=== PATIENT | male | born 1960 | race Two or more races ===

== ENCOUNTER → 2020-12-06 | Day surgery (SDC) | payer OTHER ==
[2020-12-05 08:54] VITALS: BMI 27.4
[~2020-12-06] MED LIST: ALPRAZolam 0.25 MG TAB PO PRN; ALPRAZolam 0.5 MG TAB PO PRN; ASPIRIN 325 MG TAB PO STA; ATORVASTATIN 80 MG TAB PO STA; HEPARIN SODIUM 1,000 UN/ML (10ML VL) ONE; HEPARIN SODIUM,PORCINE 10,000 UNIT in SODIUM CHLORIDE 0.9% 1,000 ML IRRIGATION PRN; HEPARIN SODIUM,PORCINE 2,500 UNIT in SODIUM CHLORIDE 0.9% 250 ML IRRIGATION PRN; IOPAMIDOL-370 100ML BTL INJ ONE; LIDOCAINE 1% INJ 10MG/ML (20 ML MDV) ONE; LIDOCAINE 1% INJ 10MG/ML (20 ML MDV) SQ ONE; NITROGLYCERIN SL TABS 0.4 MG TAB SUBLINGUAL PRN; SODIUM CHLORIDE 0.9% 1,000 ML in EMPTY BAG 1 BAG IV ONE; VERAPAMIL 2.5 MG/ML 2 ML AMP ONE
[2020-12-06 06:41] VITALS: RESP 16; TEMP 97.6
[2020-12-06] MEDS: MIDAZOLAM 2 MG/2 ML VIAL IV ONE ×2 (07:50→07:54)
[2020-12-06] MEDS: VERAPAMIL SYRINGE (5 MG/10 ML) IV ONE ×2 (08:00→08:17)
--- NOTE | 2020-12-06 09:11 | CC ---
CARDIAC CATHETERIZATION REPORT DATE OF SERVICE: 12/06/2020 PROCEDURE: Left heart catheterization and coronary angiography. PERFORMED BY: Dr. Ifeanyi Santos. ANESTHESIA: Moderate conscious sedation time was 26 minutes. Patient was administered Versed. Oxygen saturation, hemodynamics and EKG were monitored closely. CLINICAL INFORMATION: Mr. Perez Flowers is a 60-year-old gentleman with a known history of CAD, prior PCI of LAD that was performed in 2008. He also has hypertension and hyperlipidemia. He has been having episodes of chest tightness, pressure with moderate effort and a stress test revealed inferolateral reversible defect. Therefore he was advised cardiac catheterization after adequate medications. Risks, benefits, options, rationale were explained to the patient. He understood all details and wished to proceed with the procedure. PROCEDURE NOTE: Under local anesthesia and strict aseptic precautions, a 6-Welsh introducer was placed in the right radial artery. Using a JL3.5 and JR4 catheters I performed coronary angiography and the same right catheter was used to check LV pressure but LV gram was not performed. The sheath was taken out and a TR band applied as per protocol with saturation of the fingers of the right hand of 95%. CARDIAC CATHETERIZATION FINDINGS: Left ventricular end-diastolic pressure was about 15 mmHg without any gradient across aortic valve. CORONARY ANGIOGRAPHY FINDINGS: RIGHT CORONARY ARTERY: This is a large dominant vessel that is heavily calcified in the proximal and midportion. The proximal portion has a long area of about 55% narrowing extremely tortuous and in the midportion there is a very eccentric 80% stenosis at the origin of an acute marginal branch after which the caliber improves and distally bifurcates into a larger PDA, a smaller PLV. The RCA therefore is a dominant vessel, heavily calcified proximal 55-60, mid 75-80% and heavily calcified segment and this appears to be the culprit lesion. LEFT MAIN CORONARY ARTERY: Long patent disease-free vessel that bifurcates into LAD and circumflex. LEFT ANTERIOR DESCENDING CORONARY ARTERY: Good caliber vessel extends along the anterior wall. At the site of previous stenting the vessel is widely patent. Beyond that, it gives off a diagonal branch that runs all the way to the apex, has minor irregularities. There is about a 35% to 40% lesion in the LAD, but the stented segment is widely patent with brisk flow. LEFT POSTERIOR CIRCUMFLEX CORONARY ARTERY: Technically this is a nondominant vessel, gives off a single obtuse marginal that runs laterally almost in the ramus distribution, has about a 40% proximal lesion. A circumflex that continues in the AV groove and distal posterolateral branch have minor irregularities. No significant disease in the circumflex system. FINAL IMPRESSION: This patient has a right dominant system with slightly elevated filling pressures. No gradient. There is a 55% stenosis in the proximal RCA, 75-80% in mid RCA in a heavily calcified segment. Previously stented mid LAD is widely patent with good flow and circumflex has noncritical disease and a nondominant vessel. RECOMMENDATIONS: I am recommending intervention of the RCA, but I will perform this in an elective setting. The patient will need an orbital atherectomy procedure, which I will perform from right femoral approach because I would need much better guide support. RCA comes off at a superior angle and has somewhat of a difficult seating of the guide catheter. I will therefore perform elective PCI with orbital atherectomy of the RCA and this will be performed in the next couple of weeks. I discussed this with the patient and his friend. Rationale, risks, benefits and options explained. The associated risks, which are higher than usual, were also discussed. Patient understands all details and I will set this up in the next 2 weeks, but I will see him in the office tomorrow afternoon. MMODL / IJN: [id number] /
[2020-12-06 19:43] VITALS: BP 138/90; PULSE 64
== END ==
LOC: CATHCVL 06:05
PROVIDERS: ATTEND Internal Medicine Interventional Cardiology
DX: I25.110 Atherosclerotic heart disease of native coronary artery with unstable angina pectoris (principal); I25.84 Coronary atherosclerosis due to calcified coronary lesion; I77.1 Stricture of artery; I10 Essential (primary) hypertension; R94.39 Abnormal result of other cardiovascular function study; E78.00 Pure hypercholesterolemia, unspecified; E78.5 Hyperlipidemia, unspecified; Z82.49 Family history of ischemic heart disease and other diseases of the circulatory system; Z98.61 Coronary angioplasty status
CPT/HCPCS: 93458; C1894; J2250; J2001; J1644; Q9967

== ENCOUNTER 2020-12-12 06:08 | Day surgery (SDC) | payer OTHER ==
[2020-12-09 08:18] VITALS: BMI 26.6
[~2020-12-12 06:08] MED LIST changes: -HEPARIN SODIUM 1,000 UN/ML (10ML VL) ONE; -HEPARIN SODIUM,PORCINE 10,000 UNIT in SODIUM CHLORIDE 0.9% 1,000 ML IRRIGATION PRN; -HEPARIN SODIUM,PORCINE 2,500 UNIT in SODIUM CHLORIDE 0.9% 250 ML IRRIGATION PRN; -IOPAMIDOL-370 100ML BTL INJ ONE; -LIDOCAINE 1% INJ 10MG/ML (20 ML MDV) ONE; -LIDOCAINE 1% INJ 10MG/ML (20 ML MDV) SQ ONE; -VERAPAMIL 2.5 MG/ML 2 ML AMP ONE
[2020-12-12] MEDS ORDERED: SODIUM CHLORIDE 0.9% 1,000 ML IV ONE (06:21)
[2020-12-12 06:38] LABS: Basophils # (A) 0.1 k/uL (0-0.2); Basophils % (A) 1 %; Eosinophils # (A) 0.4 k/uL (0-0.7); Eosinophils % (A) 4 %; HCT 42.5 % (39.0-53.0); Lymphocytes # (A) 1.8 k/uL (1.0-4.8); Lymphocytes % (A) 21 %; MCH 30.7 pg (25.0-35.0); MCHC 35.2 g/dL (31.0-37.0); MCV 87.2 fL (80.0-100.0); Mean Platelet Volume 6.9; Monocytes # (A) 0.7 k/uL (0-1.0); Monocytes % (A) 8 %; Neutrophils # (A) 5.5 k/uL (1.3-7.7); Neutrophils % (A) 64 %; Platelet Count 179 k/uL (150-450); RBC 4.87 m/uL (4.30-5.90); RDW 12.6 % (11.5-15.5); WBC 8.6 k/uL (3.8-10.6)
[2020-12-12 06:46] LABS: African American GFR (CKD) >90 (>60 ml/min/1.73 sqM); Anion Gap 5 mmol/L; Blood Urea Nitrogen 16 mg/dL (9-20); Calcium 9.2 mg/dL (8.4-10.2); Carbon Dioxide 29 mmol/L (22-30); Chloride 107 mmol/L (98-107); Glucose 106 mg/dL (74-99); Non-African American GFR(CKD) >90 (>60 ml/min/1.73 sqM); Potassium 3.7 mmol/L (3.5-5.1); Sodium 141 mmol/L (137-145)
[2020-12-12] MEDS ORDERED: LIDOCAINE 1% INJ 10MG/ML (20 ML MDV) ONE (07:14)
[2020-12-12] MEDS: MIDAZOLAM 2 MG/2 ML VIAL IVP ONE ×2 (07:20→07:45)
[2020-12-12] MEDS ORDERED: LIDOCAINE 1% INJ 10MG/ML (20 ML MDV) SQ ONE (07:22)
[2020-12-12] MEDS ORDERED: fentaNYL (PF) 50 MCG/ML 2 ML AMP ONE (07:25)
[2020-12-12] MEDS: fentaNYL (PF) 50 MCG/ML 2 ML AMP IV ONE ×2 (07:26→07:29)
[2020-12-12] MEDS ORDERED: HEPARIN SODIUM 1,000 UN/ML (10ML VL) ONE (07:36)
[2020-12-12] MEDS: HEPARIN SODIUM 1,000 UN/ML (10ML VL) IV ONE ×2 (07:40→08:25)
[2020-12-12] MEDS ORDERED: IOPAMIDOL-370 100ML BTL INJ ONE ×2 (08:18→08:35)
[2020-12-12] MEDS ORDERED: CLOPIDOGREL 75 MG TAB ONE (08:25)
[2020-12-12] MEDS ORDERED: CLOPIDOGREL 75 MG TAB PO ONE (08:26)
[2020-12-12] MEDS ORDERED: NITROGLYCERIN 1000MCG/10ML SYRINGE INTRACORON ONE (08:27)
[2020-12-12] MEDS ORDERED: HYDROmorphone 0.5 MG/0.5 ML SYRINGE IVP ONE (08:35)
[2020-12-12] MEDS: SODIUM CHLORIDE 0.9% 1,000 ML IV SCH ×2 (09:00→22:20)
[2020-12-12] MEDS: LORATADINE 10 MG TAB PO SCH (11:52)
[2020-12-12] MEDS: CLOPIDOGREL 75 MG TAB PO SCH (11:52)
[2020-12-12] MEDS: EZETIMIBE 10 MG TAB PO SCH (11:52)
[2020-12-12] MEDS: METOPROLOL TARTRATE 25 MG TAB PO SCH ×2 (11:52→22:19)
[2020-12-12] MEDS: ATORVASTATIN 80 MG TAB PO SCH (13:07)
--- NOTE | 2020-12-12 14:32 | CC ---
CARDIAC CATHETERIZATION REPORT ADDENDUM: Moderate conscious sedation time was 75 minutes. Patient was administered Versed and fentanyl. Oxygen saturation, hemodynamics and EKG were monitored closely. The patient tolerated procedure well without complications. Excellent angiographic result was achieved. Details were discussed with the patient and his friend. SEBASTIEN / PAT: [id number] /
--- NOTE | 2020-12-12 14:32 | CC ---
CARDIAC CATHETERIZATION REPORT DATE OF SERVICE: date of service 12/12/2020. PROCEDURE PERFORMED: 1. Transvenous temporary pacemaker from the right femoral venous approach. 2. Orbital atherectomy, PTCA and stenting of proximal and mid dominant RCA with a drug- eluting stents. PERFORMED BY: Dr. Ifeanyi Santos. CLINICAL INFORMATION: Mr. Perez Flowers is a 60-year-old gentleman who works in the [employer] department. He is a fairly active person, has been having symptoms of exertional shortness of breath and chest pain, had a positive stress test with a moderate inferolateral reversible defect suggestive of ischemia. Recent cardiac cath revealed that his previously stented LAD was widely patent but he had a new lesion in the proximal RCA of 65% and mid RCA of 85%. Heavily calcified vessel, was advised orbital atherectomy and PTCA, brought in for the procedure electively. Patient was already on aspirin and Plavix. PROCEDURE NOTE: Under local anesthesia and strict aseptic precautions, a 6-Polish introducer was placed in the right femoral vein and another 6-Polish introducer in the right femoral artery. Using a transvenous balloon tipped pacemaker, the pacemaker was positioned in the right ventricular apex and threshold was about 0.8 mV. The pacemaker was set up at a backup rate of 40 and mA of 5. I then turned my attention to the PCI. AllRight 3.5 curve guide catheter was used to cannulate the right coronary artery. I used a Nitinol wire of 310 cm to cross the lesion in the RCA. Wire was kept in the PLV branch. I performed orbital atherectomy of the proximal and mid lesion. Multiple passes were used. For the mid lesion, I had to use a Lizz glide to advance the device. After making multiple passes in the mid and proximal lesion, the device was taken out. I then used a 3.0 caliber 15 mm NC Trek balloon and with this I pre-dilated the mid as well as the proximal lesion. I then deployed a 3.5 caliber 15 mm Xience stent in the distal lesion and a 28 mm 3.5 caliber Xience stent in the proximal lesion. Both the stents were almost close to each other in the midportion. I then post dilated the entire stented segment with a 4.0 caliber NC Trek balloon of 15 mm length. Excellent angiographic result without complication was achieved. Patient received a total of 6500 units of heparin and ACT was kept between 250 and 302. The sheath was taken out and Angio-Seal device used to secure hemostasis. The venous sheath was taken out and manual compression used. Results were discussed with the patient and his friend and he was sent to the room in a stable condition. MMKINJAL / PAT: [id number] /
[2020-12-12 19:36] VITALS: RESP 16
[2020-12-13 07:08] LABS: Basophils # (A) 0.1 k/uL (0-0.2); Basophils % (A) 1 %; Eosinophils # (A) 0.2 k/uL (0-0.7); Eosinophils % (A) 3 %; HCT 42.9 % (39.0-53.0); Lymphocytes # (A) 1.3 k/uL (1.0-4.8); Lymphocytes % (A) 17 %; MCH 29.6 pg (25.0-35.0); MCHC 32.7 g/dL (31.0-37.0); MCV 90.5 fL (80.0-100.0); Mean Platelet Volume 6.7; Monocytes # (A) 0.5 k/uL (0-1.0); Monocytes % (A) 7 %; Neutrophils # (A) 5.2 k/uL (1.3-7.7); Neutrophils % (A) 71 %; Platelet Count 168 k/uL (150-450); RBC 4.73 m/uL (4.30-5.90); RDW 12.7 % (11.5-15.5); WBC 7.4 k/uL (3.8-10.6)
[2020-12-13 07:11] LABS: African American GFR (CKD) >90 (>60 ml/min/1.73 sqM); Anion Gap 4 mmol/L; Blood Urea Nitrogen 13 mg/dL (9-20); Calcium 9.2 mg/dL (8.4-10.2); Carbon Dioxide 28 mmol/L (22-30); Chloride 108 mmol/L (98-107); Glucose 115 mg/dL (74-99); Non-African American GFR(CKD) >90 (>60 ml/min/1.73 sqM); Potassium 4.1 mmol/L (3.5-5.1); Sodium 140 mmol/L (137-145)
[2020-12-13 07:17] VITALS: BP 149/83; PULSE 56; TEMP 98
--- NOTE | 2020-12-13 07:48 | DS ---
DISCHARGE SUMMARY DATE OF ADMISSION: 12/12/2020 DATE OF DISCHARGE: 12/13/2020 DIAGNOSES: 1. Unstable angina. 2. Hypertension. 3. Hyperlipidemia. PROCEDURES PERFORMED: PTCA and stenting with orbital atherectomy of proximal and mid dominant RCA. Two drug- eluting stents were deployed. HISTORY OF PRESENT ILLNESS: Mr. Flowers she was brought in for elective PCI of RCA with orbital atherectomy. This procedure was performed uneventfully yesterday. He had a temporary pacemaker placed from right femoral approach. Orbital atherectomy and stenting of dominant RCA in the proximal and midportion was performed with 2 drug-eluting stents. The patient had excellent angiographic result. His postprocedure course was uneventful. This morning he is asymptomatic. Chart was reviewed. EKG was reviewed. He is resting comfortably without symptoms. PHYSICAL EXAMINATION: Vitals are stable. No JVD. S1, S2 heard normally. Lungs are clear. Abdomen is soft, nontender. Lower extremities reveal normal pulses, no edema. Central nervous system is normal. EKG revealed sinus mechanism with nondiagnostic inferior Q-waves. The laboratory data is still pending. RECOMMENDATION: Patient will be discharged today after reviewing the labs. He will be ambulated in the hallways. If he has no further symptoms, he will be discharged and I will see him in the office at 4:00 pm on the . Advised not to return to work until he sees me. All medications were reviewed. He is already on dual antiplatelet therapy. A single prescription for sublingual nitroglycerin was given. SEBASTIEN / CARLOTAN: [id number] /
[2020-12-13] MEDS: LORATADINE 10 MG TAB PO SCH (07:49)
[2020-12-13] MEDS: EZETIMIBE 10 MG TAB PO SCH (07:49)
[2020-12-13] MEDS: ATORVASTATIN 80 MG TAB PO SCH (07:49)
[2020-12-13] MEDS: CLOPIDOGREL 75 MG TAB PO SCH (07:49)
[2020-12-13] MEDS: METOPROLOL TARTRATE 25 MG TAB PO SCH (07:49)
[2020-12-13] MEDS ORDERED: ASPIRIN 81 MG PO SCH (09:00)
== END 2020-12-13 09:12 | disposition home or self-care (01) ==
LOC: CATHCVL 06:08 → 6NMEDSUR 11:28 → CATHCVL 12-13 09:12
PROVIDERS: ATTEND Internal Medicine Interventional Cardiology
DX: I25.10 Atherosclerotic heart disease of native coronary artery without angina pectoris (principal); I25.84 Coronary atherosclerosis due to calcified coronary lesion; Z95.5 Presence of coronary angioplasty implant and graft; I10 Essential (primary) hypertension; E78.5 Hyperlipidemia, unspecified; Z82.49 Family history of ischemic heart disease and other diseases of the circulatory system; E78.00 Pure hypercholesterolemia, unspecified; Z79.02 Long term (current) use of antithrombotics/antiplatelets; Z79.82 Long term (current) use of aspirin; Z79.899 Other long term (current) drug therapy
CPT/HCPCS: 80048 ×2; 85025 ×2; C9602; C1769 ×5; C1760; C1887; C1725 ×3; C1894; C1724; C1874; J2250; J2001; J3010; J1644; J1170; Q9967

== ENCOUNTER 2021-08-28 10:46 | Emergency (ER) | payer OTHER ==
[2021-08-28 10:51] VITALS: TEMP 97.1
[2021-08-28] MEDS ORDERED: SODIUM CHLORIDE 0.9% 500 ML 500 ML IV STA (11:02)
[2021-08-28] MEDS ORDERED: ASPIRIN 81 MG PO STA (11:02)
--- NOTE | 2021-08-28 11:12 | ED ---
Arrhythmia/Palpitations HPI - General Chief Complaint: Arrhythmia/Palpitations Stated Complaint: chest pain Time Seen by Provider: 08/28/21 10:55 Source: patient, RN notes reviewed Mode of arrival: wheelchair Limitations: no limitations - History of Present Illness Initial Comments: This a 60-year-old male presents emergency Department with chief complaint of palpitations. Patient states that he had an episode of this weekend along with an episode at work today. He states he felt like his heart was pounding he states he probably felt times in his hands. 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 He states is currently asymptomatic he does admit that he's had 3 prior cardiac stents last sent was last year. 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 Patient denies any current symptoms denies feeling short of breath, nauseated, no leg swelling or leg pain. No history of DVT or PE. - Related Data Home Medications Medication Instructions Recorded Confirmed Aspirin [Adult Low Dose Aspirin EC] 81 mg PO DAILY 12/06/20 08/28/21 Atorvastatin [Lipitor] 80 mg PO DAILY 12/06/20 08/28/21 Clopidogrel [Plavix] 75 mg PO DAILY 12/06/20 08/28/21 Metoprolol Tartrate 25 mg PO DAILY 12/06/20 08/28/21 Nitroglycerin Sl Tabs [Nitrostat] 0.4 mg SUBLINGUAL Q5M PRN 08/28/21 08/28/21 Pantoprazole [Protonix] 40 mg PO DAILY 08/28/21 08/28/21 lisinopriL 10 mg PO DAILY 08/28/21 08/28/21 Allergies Allergy/AdvReac Type Severity Reaction Status Date / Time No Known Allergies Allergy Verified 08/28/21 11:33 Review of Systems ROS Statement: Those systems with pertinent positive or pertinent negative responses have been documented in the HPI. ROS Other: All systems not noted in ROS Statement are negative. Past Medical History Past Medical History: Coronary Artery Disease (CAD), Hyperlipidemia, Hypertension Additional Past Medical History / Comment(s): States did not pass his stress test this time. States has not had any chest pain. History of Any Multi-Drug Resistant Organisms: None Reported Past Surgical History: Heart Catheterization, Heart Catheterization With Stent Additional Past Surgical History / Comment(s): colonoscopy, wisdom teeth, heart cath 12/06/20 Past Anesthesia/Blood Transfusion Reactions: No Reported Reaction Date of Last Stent Placement:: 2006 Past Psychological History: No Psychological Hx Reported Smoking Status: Never smoker Past Alcohol Use History: Occasional Past Drug Use History: None Reported - Past Family History Mother Family Medical History: No Reported History General Exam Limitations: no limitations General appearance: alert, in no apparent distress Head exam: Present: atraumatic, normocephalic, normal inspection Eye exam: Present: normal appearance, PERRL, EOMI. Absent: scleral icterus, conjunctival injection, periorbital swelling ENT exam: Present: normal exam, normal oropharynx, mucous membranes moist Neck exam: Present: normal inspection, full ROM. Absent: tenderness, meningismus, lymphadenopathy Respiratory exam: Present: normal lung sounds bilaterally. Absent: respiratory distress, wheezes, rales, rhonchi, stridor Cardiovascular Exam: Present: regular rate, normal rhythm, normal heart sounds. Absent: systolic murmur, diastolic murmur, rubs, gallop, clicks GI/Abdominal exam: Present: soft, normal bowel sounds. Absent: distended, tenderness, guarding, rebound, rigid Course Vital Signs 08/28/21 08/28/21 08/28/21 10:48 11:15 12:20 Temperature 97.1 F L Pulse Rate 73 61 63 Respiratory 18 18 18 Rate Blood Pressure 152/95 146/92 145/96 O2 Sat by Pulse 99 98 99 Oximetry Medical Decision Making - Medical Decision Making 60-year-old male presented for palpitations. Patient felt that his heart was beating her than usual. He felt in his hands. Patient workup including labs EKG and chest x-ray no acute findings. Patient remains asymptomatic. Patient discharged in stable condition return parameters were discussed. - Lab Data Result diagrams: 08/28/21 11:10 08/28/21 11:10 Lab Results 08/28/21 08/28/21 08/28/21 Range/Units 11:10 11:10 11:10 WBC 9.1 (3.8-10.6) k/uL RBC 5.21 (4.30-5.90) m/uL Hgb 15.3 (13.0-17.5) gm/dL Hct 46.7 (39.0-53.0) % MCV 89.6 (80.0-100.0) fL MCH 29.4 (25.0-35.0) pg MCHC 32.8 (31.0-37.0) g/dL RDW 13.0 (11.5-15.5) % Plt Count 164 (150-450) k/uL MPV 6.8 Neutrophils % 72 % Lymphocytes % 17 % Monocytes % 6 % Eosinophils % 2 % Basophils % 1 % Neutrophils # 6.6 (1.3-7.7) k/uL Lymphocytes # 1.5 (1.0-4.8) k/uL Monocytes # 0.6 (0-1.0) k/uL Eosinophils # 0.2 (0-0.7) k/uL Basophils # 0.1 (0-0.2) k/uL PT 10.1 (9.0-12.0) sec INR 0.9 (<1.2) APTT 25.1 (22.0-30.0) sec Sodium 138 (137-145) mmol/L Potassium 4.2 (3.5-5.1) mmol/L Chloride 106 (98-107) mmol/L Carbon Dioxide 23 (22-30) mmol/L Anion Gap 9 mmol/L BUN 15 (9-20) mg/dL Creatinine 1.03 (0.66-1.25) mg/dL Est GFR (CKD-EPI)AfAm >90 (>60 ml/min/1.73 sqM) Est GFR (CKD-EPI)NonAf 78 (>60 ml/min/1.73 sqM) Glucose 106 H (74-99) mg/dL Calcium 9.3 (8.4-10.2) mg/dL Magnesium 2.0 (1.6-2.3) mg/dL Total Bilirubin 0.8 (0.2-1.3) mg/dL AST 34 (17-59) U/L ALT 26 (4-49) U/L Alkaline Phosphatase 76 (38-126) U/L Troponin I (0.000-0.034) ng/mL Total Protein 7.7 (6.3-8.2) g/dL Albumin 4.5 (3.5-5.0) g/dL 08/28/21 Range/Units 11:10 WBC (3.8-10.6) k/uL RBC (4.30-5.90) m/uL Hgb (13.0-17.5) gm/dL Hct (39.0-53.0) % MCV (80.0-100.0) fL MCH (25.0-35.0) pg MCHC (31.0-37.0) g/dL RDW (11.5-15.5) % Plt Count (150-450) k/uL MPV Neutrophils % % Lymphocytes % % Monocytes % % Eosinophils % % Basophils % % Neutrophils # (1.3-7.7) k/uL Lymphocytes # (1.0-4.8) k/uL Monocytes # (0-1.0) k/uL Eosinophils # (0-0.7) k/uL Basophils # (0-0.2) k/uL PT (9.0-12.0) sec INR (<1.2) APTT (22.0-30.0) sec Sodium (137-145) mmol/L Potassium (3.5-5.1) mmol/L Chloride (98-107) mmol/L Carbon Dioxide (22-30) mmol/L Anion Gap mmol/L BUN (9-20) mg/dL Creatinine (0.66-1.25) mg/dL Est GFR (CKD-EPI)AfAm (>60 ml/min/1.73 sqM) Est GFR (CKD-EPI)NonAf (>60 ml/min/1.73 sqM) Glucose (74-99) mg/dL Calcium (8.4-10.2) mg/dL Magnesium (1.6-2.3) mg/dL Total Bilirubin (0.2-1.3) mg/dL AST (17-59) U/L ALT (4-49) U/L Alkaline Phosphatase (38-126) U/L Troponin I <0.012 (0.000-0.034) ng/mL Total Protein (6.3-8.2) g/dL Albumin (3.5-5.0) g/dL Disposition Clinical Impression: Palpitations Disposition: HOME SELF-CARE Condition: Stable Instructions (If sedation given, give patient instructions): Heart Palpitations (ED) Additional Instructions: Please return to the Emergency Department if symptoms worsen or any other concerns. Is patient prescribed a controlled substance at d/c from ED?: No Referrals: Quinton Flower MD [Primary Care Provider] - 1-2 days Time of Disposition: 12:24
[2021-08-28 11:31] LABS: Basophils # (A) 0.1 k/uL (0-0.2); Basophils % (A) 1 %; Eosinophils # (A) 0.2 k/uL (0-0.7); Eosinophils % (A) 2 %; HCT 46.7 % (39.0-53.0); HGB 15.3 gm/dL (13.0-17.5); Lymphocytes # (A) 1.5 k/uL (1.0-4.8); Lymphocytes % (A) 17 %; MCH 29.4 pg (25.0-35.0); MCHC 32.8 g/dL (31.0-37.0); MCV 89.6 fL (80.0-100.0); Mean Platelet Volume 6.8; Monocytes # (A) 0.6 k/uL (0-1.0); Monocytes % (A) 6 %; Neutrophils # (A) 6.6 k/uL (1.3-7.7); Neutrophils % (A) 72 %; Platelet Count 164 k/uL (150-450); RBC 5.21 m/uL (4.30-5.90); WBC 9.1 k/uL (3.8-10.6)
--- NOTE | 2021-08-28 11:32 | XR ---
EXAMINATION TYPE: XR chest 2V DATE OF EXAM: 08/28/2021 COMPARISON: None HISTORY: 60-year-old male dysrhythmia TECHNIQUE: PA and lateral views FINDINGS: Heart normal size. Aorta and pulmonary vasculature within normal limits. Mild interstitial prominence . Mild hyperinflation. No consolidation or pleural effusion. There appears to be a coronary stent pre sent. Mild biapical pleural-parenchymal scarring. IMPRESSION: Mild hyperinflation may relate to depth of inspiration or underlying emphysema. Clinically correlate. No acute process seen.
[2021-08-28 11:42] LABS: INR 0.9 (<1.2); Partial Thromboplastin Time 25.1 sec (22.0-30.0); Prothrombin Time 10.1 sec (9.0-12.0)
[2021-08-28 11:43] LABS: ALT 26 U/L (4-49); AST 34 U/L (17-59); African American GFR (CKD) >90 (>60 ml/min/1.73 sqM); Albumin 4.5 g/dL (3.5-5.0); Alkaline Phosphatase 76 U/L (38-126); Anion Gap 9 mmol/L; Blood Urea Nitrogen 15 mg/dL (9-20); Calcium 9.3 mg/dL (8.4-10.2); Carbon Dioxide 23 mmol/L (22-30); Chloride 106 mmol/L (98-107); Glucose 106 mg/dL (74-99); Non-African American GFR(CKD) 78 (>60 ml/min/1.73 sqM); Potassium 4.2 mmol/L (3.5-5.1); Sodium 138 mmol/L (137-145); Total Bilirubin 0.8 mg/dL (0.2-1.3); Total Protein 7.7 g/dL (6.3-8.2)
[2021-08-28 12:41] VITALS: BP 146/85; PULSE 61; RESP 20
== END 2021-08-28 12:41 | disposition home or self-care (01) ==
LOC: EC 10:46
DX: R00.2 Palpitations (principal); E78.5 Hyperlipidemia, unspecified; I10 Essential (primary) hypertension; I25.10 Atherosclerotic heart disease of native coronary artery without angina pectoris; Z79.899 Other long term (current) drug therapy; Z79.82 Long term (current) use of aspirin; Z79.02 Long term (current) use of antithrombotics/antiplatelets
CPT/HCPCS: 36415; 71046; 80053; 83735; 84484; 85025; 85610; 85730; 93005; 96360; 99285

== ENCOUNTER → 2024-11-03 | Day surgery (SDC) | payer MEDICARE, OTHER ==
[2024-11-02 10:01] VITALS: BMI 28.3
[~2024-11-03] MED LIST changes: -ASPIRIN 325 MG TAB PO STA; -ATORVASTATIN 80 MG TAB PO STA; +HEPARIN SODIUM,PORCINE (1 ML) 2,500 UNIT in SODIUM CHLORIDE 0.9% 250 ML IRRIGATION PRN; +HEPARIN SODIUM,PORCINE 10,000 UNIT in SODIUM CHLORIDE 0.9% 1,000 ML IRRIGATION PRN; -SODIUM CHLORIDE 0.9% 1,000 ML in EMPTY BAG 1 BAG IV ONE
[2024-11-03] MEDS: ASPIRIN 325 MG TAB PO STA (08:59)
[2024-11-03] MEDS: SODIUM CHLORIDE 0.9% 1,000 ML in EMPTY BAG 1 BAG IV SCH (08:59)
[2024-11-03] MEDS: ATORVASTATIN 80 MG TAB PO STA (08:59)
[2024-11-03] MEDS: IV FLUID CONTINUATION 1,000 ML IV ONE ×2 (09:00→15:29)
[2024-11-03 09:12] VITALS: RESP 16; TEMP 97.9
[2024-11-03] MEDS: MIDAZOLAM 2 MG/2 ML VIAL IVP ONE ×3 (10:41→10:51)
[2024-11-03] MEDS: LIDOCAINE 2% (PF) 20 MG/ML 5 ML VIAL SQ ONE (10:50)
[2024-11-03] MEDS: VERAPAMIL 2.5 MG/ML 4 ML VIAL INTRAARTER ONE (10:51)
[2024-11-03] MEDS: HEPARIN SODIUM 1,000 UN/ML (10ML VL) IVP ONE (10:55)
[2024-11-03] MEDS: HYDROmorphone 0.5 MG/0.5 ML SYRINGE IVP ONE (11:04)
[2024-11-03] MEDS: HEPARIN SODIUM,PORCINE (1 ML) 2,500 UNIT in SODIUM CHLORIDE 0.9% 250 ML IRRIGATION ONE (11:15)
[2024-11-03] MEDS: HEPARIN SODIUM,PORCINE 10,000 UNIT in SODIUM CHLORIDE 0.9% 1,000 ML IRRIGATION ONE (11:15)
[2024-11-03] MEDS: IOPAMIDOL-370 100ML BTL INTRATHECA ONE (11:15)
--- NOTE | 2024-11-03 11:41 | P.CARDCATH ---
Date of Procedure: 11/03/24 Description of Procedure: History: Patient was referred for cardiac catheterization to evaluate for CAD. This gentleman has history of coronary disease heavily calcified coronary arteries for which she had a stent of mid LAD performed in 2008 by me and subsequently in 2020 I performed stenting of proximal and mid RCA with orbital atherectomy and stenting with a good result. He has been having symptoms of chest tightness and a positive stress test with anteroapical area of reversible defect. He was advised cardiac cath and brought in for the procedure after due discussion regarding risks benefits and options. He understood all details and wished to proceed with the procedure Procedure Details: The risks, benefits, complications, treatment options, and expected outcomes were discussed with the patient. The patient and/or family concurred with the proposed plan, giving informed consent. Patient was brought to the dental laboratory manager after IV hydration was begun and oral premedication was given. Patient was further sedated with midazolam. Patient was prepped and draped in the usual manner. Under strict aseptic precautions and local anesthesia a 6 Uzbek introducer was placed in the right radial artery. Using a JL 3/5 and a JR 4/0 catheters I performed coronary angiography and the same JR catheter was used to check LV pressures and LV gram was not performed. After the procedure was completed the sheaths and catheters were all removed. Hemostasis was achieved with TR band. Saturation in the fingers of the right hand was about 97%. Moderate conscious sedation time was 25 minutes. Patient's oxygen saturation hemodynamics and EKG were monitored closely. Findings: Hemodynamics: Left ventricle end-diastolic pressure was 15 mmHg no gradient across aortic valve Left Main: Patent vessel no significant disease bifurcates into LAD and circumflex LAD: This vessel was stented in the midportion it is a heavily calcified vessel with 30 to 40% narrowing but no significant disease gives off a diagonal branch which is of fair caliber but small distribution has an ostial lesion of 90% this may be the culprit lesion on the stress test. LAD itself does not have any significant disease although there is moderate to heavy calcification throughout, the previously stented mid LAD is widely patent with remarkably good flow CIRC: This is a technically nondominant vessel gives off a high obtuse marginal almost looks like a ramus 30 to 40% narrowing and then circumflex continues distally and gives off a large posterolateral branch no significant disease but there is moderate calcification RCA: Dominant vessel that was stented in 2020 with a orbital atherectomy now widely patent has 30 to 40% narrowing in the midportion distally bifurcates into a small PLV large PDA minor irregularities no significant disease. The entire RCA that was stented is widely patent with good flow LV: LV gram not performed Closure Device: TR band Complications: None Estimated Blood Loss: Minimal Impression: Right dominant system slightly elevated filling pressures no gradient wire patent RCA that was stented patent LAD in the midportion widely patent. Diagonal branch has a 90% stenosis moderate caliber relatively small distribution. This represents progression of disease Pre Procedure Diagnosis: CAD with a positive stress test Final Post Procedure Diagnosis: CAD with progression of disease in diagonal branch Recommendation: Aggressive medical therapy with risk factor modification no percutaneous intervention diagonal branch is the culprit discussed with patient will be discharged later on today and I will see him in the office on Saturday discussed with the patient the findings and recommendations no family members are available. Complications: None; patient tolerated the procedure well. Disposition: Extended stay unit- hemodynamically stable. Condition: Stable Discharge Disposition: Discharge patient home later on today.
[2024-11-03 13:18] VITALS: BP 148/92; PULSE 55
== END ==
LOC: CATHCVL 08:36
PROVIDERS: ATTEND Internal Medicine Interventional Cardiology
DX: I25.10 Atherosclerotic heart disease of native coronary artery without angina pectoris (principal); I10 Essential (primary) hypertension; E78.00 Pure hypercholesterolemia, unspecified; Z95.5 Presence of coronary angioplasty implant and graft; Z79.82 Long term (current) use of aspirin; Z79.02 Long term (current) use of antithrombotics/antiplatelets; Z79.899 Other long term (current) drug therapy
CPT/HCPCS: 93458; 99152; 99153; C1769; C1894; C1887; J2250; J1644 ×3; J1171; Q9967; J2003